=== PATIENT | male | born 2000 | race Caucasian/White ===

== ENCOUNTER 2021-02-13 19:11 | Emergency (ER) | payer OTHER ==
[~2021-02-13] VITALS: Ht 185.4 cm; Wt 72.6 kg
[~2021-02-13 19:11] MED LIST: AMOXICILLIN 50500 MG PO; AURALGAN EAR DR14 ML OT; ORAPRED15 MG/5 M1 PO; PROAIR HFA8.5 GM IH; TOBREX5 ML OPHTHALMIC; VENTOLIN17 GM; XOPENEX HFA15 GM IH
[2021-02-13 19:53] VITALS: BP 112/75
== END 2021-02-13 19:54 ==
LOC: M.ERS 19:11
DX: B07.0 Plantar wart (principal); J45.909 Unspecified asthma, uncomplicated